=== PATIENT | female | born 1990 | race Caucasian/White ===

== ENCOUNTER 2022-09-18 01:20 | Emergency (ER) | payer SELFPAY ==
[~2022-09-18] VITALS: Ht 160 cm; Wt 71.2 kg
[2022-09-18 01:24] VITALS: BP 109/64
== END 2022-09-18 05:00 | disposition left against medical advice (07) ==
LOC: ER 01:20
DX: Z53.21 Procedure and treatment not carried out due to patient leaving prior to being seen by health care provider (principal)